=== PATIENT | female | born 1975 | race Caucasian/White ===

== ENCOUNTER → 2021-02-14 | Outpatient (CLI) | payer OTHER ==
[2021-02-14 13:18] LABS: HEMOGLOBIN 11.8 gm/dl (12.3-15.3); RED BLOOD COUNT 4.07 M/UL (4.00-5.10); WHITE BLOOD COUNT 6.7 K/UL (4.5-11.0)
[2021-02-14 13:45] LABS: BUN/CREATININE RATIO 9 (0-10)
[2021-02-15 09:14] LABS: VITAMIN D, 25-HYDROXY 19.9 ng/mL (30.0-100.0)
== END ==
LOC: LAB 12:08
PROVIDERS: Internal Medicine
DX: I73.00 Raynaud's syndrome without gangrene (principal); M25.50 Pain in unspecified joint; R76.8 Other specified abnormal immunological findings in serum; E53.8 Deficiency of other specified B group vitamins; E55.9 Vitamin D deficiency, unspecified
CPT/HCPCS: 36415; 80053; 82607; 82746; 85025; 86160; 86162